=== PATIENT | female | born 1945 | race Caucasian/White ===

== ENCOUNTER 2019-04-11 07:56 | Emergency (ER) | payer OTHER ==
[~2019-04-11] VITALS: Ht 157.5 cm; Wt 64.9 kg
[2019-04-11 08:10] VITALS: BP 129/78
--- NOTE | 2019-04-11 08:13 | NUR ---
Patient came in to the ER c/o lower back pain and hip x 1 1/2 weeks. On room air, breathing evenly and unlabored. Kept comfortable, will continue to monitor accordingly.
[2019-04-11] MEDS ORDERED: KETOROLAC TROMETHAMINE INJ 30 MG/ML VIAL ONE (08:50)
[2019-04-11] MEDS: KETOROLAC TROMETHAMINE INJ 60 MG/2 ML VIAL IM ONE (08:54)
== END 2019-04-11 10:19 | disposition home or self-care (01) ==
LOC: ER 07:56
DX: M54.42 Lumbago with sciatica, left side (principal)
CPT/HCPCS: 72110; 72170; 96372; 99283; J1885